=== PATIENT | male | born 1940 | race Caucasian/White ===

== ENCOUNTER 2017-06-08 07:19 | Emergency (ER) | payer MEDICARE, OTHER ==
[~2017-06-08] VITALS: Ht 170.2 cm; Wt 52.2 kg
[~2017-06-08 07:19] MED LIST: FUROSEMIDE20 M1 ORAL; HYDRALAZINE HCL25 M1 ORAL; HYDRALAZINE HCL25 M2 PO; KLONOPIN0.5 MG ORAL; PROSCAR5 MG ORAL; TAMSULOSIN HCL0.4 MG ORAL
[2017-06-08 07:45] VITALS: BP 178/83
[2017-06-08 08:33] LABS: APPEARANCE,URINE CLEAR; BILIRUBIN, URINE NEGATIVE (NEGATIVE); COLOR,URINE PALE YELLOW; GLUCOSE, URINE (UA) NEGATIVE (NEGATIVE); KETONES,URINE NEGATIVE (NEGATIVE); LEUKOCYTE ESTERASE ,URINE NEGATIVE (NEGATIVE); NITRITE,URINE NEGATIVE (NEGATIVE); PH,URINE 7 (4.5-8.0); PROTEIN,URINE 3+ (NEGATIVE); UROBILINOGEN,URINE NORMAL MG/DL (0.0-1.0)
--- NOTE | 2017-06-08 08:34 | Emergency Room Report ---
History of Present Illness General Chief Complaint: Male Urogenital Problems Source: Patient Present Illness HPI 76-year-old male brought in from home for 2 weeks of intermittent polyuria Patient denies dysuria, abdominal pain, nausea or vomiting or fever or chills States he was taken to [facility] last week for similar complaint but "they didn't take my insurance" so than the to me to [facility]. Patient endorses that he was admitted there and he was given lisinopril for uncontrolled blood pressure but "they wouldn't let me take it home and." He denies any history of diabetes, states not sure what additional tests were done a prominent to evaluate for polyuria. Patient states he has remote history of surgery for BPH, however that was 10 years ago. Allergies: Coded Allergies: AMLODIPINE (Unverified Allergy, Unknown, 09/16/15) AMPICILLIN (Unverified Allergy, Unknown, 09/16/15) Patient History Past Medical History: none Past Surgical History: none Pertinent Family History: none Social History: Denies: smoking, alcohol use, drug use Immunizations: UTD Reviewed Nursing Documentation: PMH: Agreed, PSxH: Agreed Nursing Documentation-PMH Hx Hypertension: Yes Hx Cancer: Yes - MALIGNANCY RT EYE Hx Gastrointestinal Problems: Yes - LEFT KIDNEY NEPHROSIS Review of Systems All Other Systems: negative except mentioned in HPI Physical Exam Vital Signs Date Time Temp Pulse Resp B/P (MAP) Pulse Ox O2 Delivery O2 Flow Rate FiO2 06/08/17 07:09 97.9 53 16 178/83 98 Room Air Sp02 EP Interpretation: reviewed, normal General Appearance: normal inspection, well appearing, no apparent distress, alert, GCS 15, non-toxic Head: normocephalic, atraumatic Eyes: bilateral eye PERRL, bilateral eye EOMI ENT: normal ENT inspection, hearing grossly normal, normal pharynx, no angioedema, normal voice, TMs + canals normal, uvula midline, moist mucus membranes Neck: normal inspection, full range of motion, supple, thyroid normal, no meningismus, no bony tend Respiratory: normal inspection, lungs clear, normal breath sounds, no rhonchi, no respiratory distress, no retraction, no accessory muscle use, no wheezing, speaking full sentences Cardiovascular #1: regular rate, rhythm, no edema, no JVD, normal capillary refill Gastrointestinal: normal inspection, normal bowel sounds, non tender, soft, no mass, no peritonitis, non-distended, no guarding, no hernia, no pulsatile mass Genitourinary: no CVA tenderness Musculoskeletal: normal inspection, back normal, normal range of motion, no calf tenderness, pelvis stable, Chris's Sign negative Neurologic: normal inspection, alert, oriented x3, responsive, spine supervisor III-XII nml as tested, motor strength/tone normal, cerebellar normal, normal gait, speech normal Psychiatric: normal inspection, judgement/insight normal, mood/affect normal, no suicidal/homicidal ideation, no delusions Skin: normal inspection, normal color, no rash Lymphatic: normal inspection, no adenopathy Medical Decision Making Diagnostic Impression: Primary Impression: Polyuria Additional Impression: Essential hypertension ER Course Vital signs stable, afebrile Mildly elevated blood pressure due to known essential hypertension Glucose 80 UA: No infection. No glucose. Mild protein Patient very well appearing, nonseptic appearing Patient also very dramatic, crying, wants to be admitted because "what if this happens again with him at home" referring to the polyuria. Spent considerable time reassuring patient Patient has remained stable during ED stay. Disposition: Patient is to be discharged to home. Patient is instructed to follow up with their primary care doctor within 5 days. Strict return precautions discussed with patient such as fever, chills, worsening/severe pain, nausea, vomiting, which may indicate severe illness. Patient verbalizes understanding and agrees with plan. Please note that this Emergency Department Report was dictated using [employer] secretary technology software, occasionally this can lead to erroneous entry secondary to interpretation by the dictation equipment Last Vital Signs Date Time Temp Pulse Resp B/P (MAP) Pulse Ox O2 Delivery O2 Flow Rate FiO2 06/08/17 07:45 97.9 16 178/83 98 Room Air 06/08/17 07:09 53 Status: improved Disposition: HOME, SELF-CARE KVNG ISLAS M.D. Jun 08, 2017 08:34
[2017-06-08 08:48] VITALS: BP 170/56
[2017-06-08 09:38] VITALS: BP 166/79
[2017-06-08 10:29] VITALS: BP 166/79
== END 2017-06-08 10:29 | disposition home or self-care (01) ==
LOC: EDBD 07:19 → EMR 08:30
DX: R35.8 Other polyuria (principal); I10 Essential (primary) hypertension; Z85.840 Personal history of malignant neoplasm of eye; Z88.0 Allergy status to penicillin; Z88.8 Allergy status to other drugs, medicaments and biological substances
CPT/HCPCS: 81003; 82962; 99283

== ENCOUNTER 2017-11-17 19:34 | Emergency (ER) | payer MEDICARE, OTHER ==
[~2017-11-17] VITALS: Ht 170.2 cm; Wt 56.7 kg
[2017-11-17 20:10] VITALS: BP 181/93
--- NOTE | 2017-11-17 20:18 | Emergency Room Report ---
History of Present Illness General Chief Complaint: Multiple Trauma/Fall Source: Patient, Medical Record Present Illness HPI Patient is a 77-year-old male who presented after fall at home. Patient states he lives alone. Patient was noted to have increased had difficulty ambulating after falling. Patient stated he was lying on the ground for several hours prior to being able to get up. The patient reports having prior history of renal disease as well as anxiety. He reports having chronic lower extremity swelling.The patient has a right eye blindness.The patient reports having severe upper back pain. The patient denies any loss of consciousness. Patient reports having to crawl to call 911. Allergies: Coded Allergies: AMLODIPINE (Unverified Allergy, Unknown, 09/16/15) AMPICILLIN (Unverified Allergy, Unknown, 09/16/15) Patient History Past Medical History: see triage record Reviewed Nursing Documentation: PMH: Agreed; PSxH: Agreed Nursing Documentation-PMH Past Medical History: No History, Except For Hx Hypertension: Yes Hx Cancer: Yes - MALIGNANCY RT EYE Hx Gastrointestinal Problems: Yes Hx Dialysis: No - LEFT KIDNEY NEPHROSIS, Left kidney failure Review of Systems All Other Systems: negative except mentioned in HPI Physical Exam Vital Signs Date Time Temp Pulse Resp B/P (MAP) Pulse Ox O2 Delivery O2 Flow Rate FiO2 11/17/17 19:39 97.8 91 18 171/94 98 Room Air 97.9 General Appearance: alert, GCS 15, cachetic, Chronically Ill Head: normocephalic Eyes: bilateral eye other - right eye absent Neck: limited range of motion Respiratory: lungs clear, normal breath sounds Cardiovascular #1: edema Gastrointestinal: normal inspection, non tender, soft Musculoskeletal: decreased range of motion Neurologic: normal inspection, alert, oriented x3, contract assistant III-XII nml as tested Skin: normal inspection Medical Decision Making Diagnostic Impression: Primary Impression: Fall Additional Impressions: Edema Lumbar strain Unsteady gait Blind right eye Multiple rib fractures Wedge compression fracture of T8 vertebra ER Course Patient presented for pain. Differential diagnosis included but was not limited to herniated disc, cauda equina syndrome, abdominal aortic aneurysm, perforated ulcer, spinal epidural abscess, spinal stenosis, lumbar fracture, metastatic lesion, pyelonephritis. Because of complexity of patient's case laboratory testing and imaging studies were ordered.CT imaging of the thoracic spine shows age-indeterminate compression fracture of T8 with irregularity of the inferior endplate. Irregularity the posterior right seventh 8, 9 and 11th ribs which may represent acute fractures.The patient was given pain medications. The CT imaging of the lumbar spine showed degenerative changes without fracture. Patient was discussed with Dr. Sky at [facility] with agreed to accept the patient. Labs Test 11/17/17 21:20 White Blood Count 10.2 K/UL (4.8-10.8) Red Blood Count 3.21 M/UL (4.70-6.10) Hemoglobin 9.8 G/DL (14.2-18.0) Hematocrit 30.2 % (42.0-52.0) Mean Corpuscular Volume 94 FL (80-99) Mean Corpuscular Hemoglobin 30.6 PG (27.0-31.0) Mean Corpuscular Hemoglobin Concent 32.6 G/DL (32.0-36.0) Red Cell Distribution Width 12.1 % (11.6-14.8) Platelet Count 152 K/UL (150-450) Mean Platelet Volume 7.6 FL (6.5-10.1) Neutrophils (%) (Auto) % (45.0-75.0) Lymphocytes (%) (Auto) % (20.0-45.0) Monocytes (%) (Auto) % (1.0-10.0) Eosinophils (%) (Auto) % (0.0-3.0) Basophils (%) (Auto) % (0.0-2.0) Prothrombin Time 9.7 SEC (9.30-11.50) Prothromb Time International Ratio 0.9 (0.9-1.1) Activated Partial Thromboplast Time 24 SEC (23-33) Urine Color Pale yellow Urine Appearance Clear Urine pH 8 (4.5-8.0) Urine Specific [place] 1.010 (1.005-1.035) Urine Protein 3+ (NEGATIVE) Urine Glucose (UA) Negative (NEGATIVE) Urine Ketones Negative (NEGATIVE) Urine Occult Blood Negative (NEGATIVE) Urine Nitrite Negative (NEGATIVE) Urine Bilirubin Negative (NEGATIVE) Urine Urobilinogen Normal MG/DL (0.0-1.0) Urine Leukocyte Esterase Negative (NEGATIVE) Urine RBC 0-2 /HPF (0 - 0) Urine WBC 0-2 /HPF (0 - 0) Urine Squamous Epithelial Cells None /LPF (NONE/OCC) Urine Bacteria Few /HPF (NONE) EKG Diagnostic Results Rate: normal Rhythm: NSR ST Segments: no acute changes Last Vital Signs Date Time Temp Pulse Resp B/P (MAP) Pulse Ox O2 Delivery O2 Flow Rate FiO2 11/17/17 19:39 97.8 91 18 171/94 98 Room Air 97.9 Status: unchanged Disposition: XFER [facility] Condition: Serious Gilberto Shah MD Nov 17, 2017 20:18
[2017-11-17] MEDS ORDERED: DITROPAN XL5 MG ORAL (21:31)
--- NOTE | 2017-11-17 21:41 | Diagnostic Imaging Report ---
EXAM: CT Lumbar Spine Without Intravenous Contrast CLINICAL HISTORY: PAIN TECHNIQUE: Axial computed tomography images of the lumbar spine without intravenous contrast. CTDI is 0.25, 10.12 mGy and DLP is 285 mGy-cm. One or more of the following dose reduction techniques were used: automated exposure control, adjustment of the mA and/or kV according to patient size, use of iterative reconstruction technique. COMPARISON: No relevant prior studies available. FINDINGS: Vertebrae: No acute fracture or traumatic malalignment. Discs/spinal canal/neural foramina: Multilevel degenerative changes. Multilevel neural foraminal stenosis and probable mild spinal canal stenosis at L3-4 and L4-5 secondary to broad-based disc bulge and facet arthropathy. Soft tissues: Unremarkable. Vasculature: Vascular calcifications. Kidneys and ureters: Atrophic kidneys. Bladder: Cystic lesion within the dependent pelvis which may represent bladder diverticulum. However this is incompletely evaluated. IMPRESSION: 1. No acute fracture or traumatic malalignment. 2. Multilevel degenerative changes.
[2017-11-17 21:44] LABS: APPEARANCE,URINE CLEAR; BILIRUBIN, URINE NEGATIVE (NEGATIVE); COLOR,URINE PALE YELLOW; GLUCOSE, URINE (UA) NEGATIVE (NEGATIVE); KETONES,URINE NEGATIVE (NEGATIVE); LEUKOCYTE ESTERASE ,URINE NEGATIVE (NEGATIVE); NITRITE,URINE NEGATIVE (NEGATIVE); PH,URINE 8 (4.5-8.0); PROTEIN,URINE 3+ (NEGATIVE); UROBILINOGEN,URINE NORMAL MG/DL (0.0-1.0)
[2017-11-17] MEDS ORDERED: Norco 5mg/325mg tab ORAL ONE (21:45)
[2017-11-17 21:48] LABS: HEMATOCRIT 30.2 % (42.0-52.0); HEMOGLOBIN 9.8 G/DL (14.2-18.0); MEAN CORPUSCULAR VOLUME 94 FL (80-99); PLATELET COUNT 152 K/UL (150-450); RED BLOOD COUNT 3.21 M/UL (4.70-6.10); RED CELL DISTRIBUTION WIDTH 12.1 % (11.6-14.8); WHITE BLOOD COUNT 10.2 K/UL (4.8-10.8)
--- NOTE | 2017-11-17 21:52 | Diagnostic Imaging Report ---
EXAM: CT Thoracic Spine Without Intravenous Contrast CLINICAL HISTORY: PAIN TECHNIQUE: Axial computed tomography images of the thoracic spine without intravenous contrast. CTDI is 0.25, 10.12 mGy and DLP is 285 mGy-cm. One or more of the following dose reduction techniques were used: automated exposure control, adjustment of the mA and/or kV according to patient size, use of iterative reconstruction technique. COMPARISON: No relevant prior studies available. FINDINGS: Vertebrae: Age-indeterminate compression deformity of T8 with irregularity and sclerosis of the inferior endplate. Discs/spinal canal/neural foramina: Multilevel degenerative changes. No spinal canal stenosis. Other bones/joints: Healing fracture of the posterior 11th rib. Soft tissues: Unremarkable. Lungs: Consolidation within the right lower lobe which may represent atelectasis versus pneumonia. Postsurgical changes are within both lungs. Other findings: Irregularity of the posterior right seventh, eighth, ninth, and 11th ribs at the costovertebral junction which may represent acute fractures. IMPRESSION: 1. Age-indeterminate compression deformity of T8 with irregularity and sclerosis of the inferior endplate. 2. Irregularity of the posterior right seventh, eighth, ninth, and 11th ribs at the costovertebral junction which may represent acute fractures. 3. Consolidation within the right lower lobe which may represent atelectasis versus pneumonia. Recommend short interval follow-up to document resolution.
[2017-11-17 21:54] LABS: INR 0.9 (0.9-1.1)
[2017-11-17 22:09] LABS: ANION GAP 11 mmol/L (5-15); BLOOD UREA NITROGEN 49 mg/dL (7-18); CALCIUM 9.1 MG/DL (8.5-10.1); CARBON DIOXIDE 24 MMOL/L (21-32); CHLORIDE 96 MMOL/L (98-107); CREATININE 2.5 MG/DL (0.55-1.30); SODIUM 131 MMOL/L (136-145)
[2017-11-17 22:23] LABS: ALANINE AMINOTRANSFERASE 27 U/L (12-78); ALBUMIN 3.6 G/DL (3.4-5.0); ALBUMIN/GLOBULIN RATIO 1.1 (1.0-2.7); ALKALINE PHOSPHATASE 87 U/L (46-116); ASPARTATE AMINO TRANSFERASE 38 U/L (15-37); BILIRUBIN,TOTAL 0.6 MG/DL (0.2-1.0); CKMB 6.9 NG/ML (0.0-3.6); CREATINE KINASE 258 U/L (26-308)
[2017-11-17 23:00] VITALS: BP 199/112
[2017-11-18] MEDS ORDERED: LORazepam Inj 2mg/ml 1ml IV ONE
[2017-11-18 01:00] VITALS: BP 122/67
[2017-11-18 02:05] VITALS: BP 138/72
--- NOTE | 2017-11-18 12:09 | Cardiology Report ---
APPROVED REPORT EKG Measurement Heart [id number] Normal sinus rhythm T wave abnormality, consider inferior ischemia Abnormal ECG
== END 2017-11-18 02:05 | disposition short-term general hospital (02) ==
LOC: EDUNIT# 19:34 → EDBD 19:34 → EMR 21:04
DX: S39.012A Strain of muscle, fascia and tendon of lower back, initial encounter (principal); S22.41XA Multiple fractures of ribs, right side, initial encounter for closed fracture; S22.060A Wedge compression fracture of T7-T8 vertebra, initial encounter for closed fracture; W19.XXXA Unspecified fall, initial encounter; Y92.009 Unspecified place in unspecified non-institutional (private) residence as the place of occurrence of the external cause; R60.0 Localized edema; I10 Essential (primary) hypertension; H54.40 Blindness, one eye, unspecified eye; Z85.840 Personal history of malignant neoplasm of eye; Z88.0 Allergy status to penicillin; Z88.8 Allergy status to other drugs, medicaments and biological substances; R26.81 Unsteadiness on feet
CPT/HCPCS: 36415; 72128; 72131; 80053; 81003; 82550; 82553; 85007; 85025; 85610; 85730; 86850; 86900; 86901; 93005; 96374; 99285; J0360